=== PATIENT | male | born 1975 | race Caucasian/White ===

== ENCOUNTER 2018-06-29 08:11 | Emergency (ER) | payer BC ==
[~2018-06-29] VITALS: Ht 182.9 cm; Wt 79.8 kg
--- NOTE | 2018-06-29 08:11 | NUR ---
BIB SELF W C/O WORSENING NAUSEA X 2 DAYS,DENIES ABDOMINAL PAIN AT THIS TIME. TO ER BED 9, HOOKED TO MONITOR, CHNAGED TO GOWN, AWAITING MD QUIROS
--- NOTE | 2018-06-29 08:20 | NUR ---
SARINA MILIAN AT BEDSIDE
[2018-06-29] MEDS ORDERED: ONDANSETRON HCL/PF 4 MG/2 ML VIAL IVP ONE (08:30)
[2018-06-29] MEDS ORDERED: IV NS 0.9% 1,000 ML BAG IV ONE (08:30)
[2018-06-29] MEDS ORDERED: ONDANSETRON HCL/PF 4 MG/2 ML VIAL ONE (08:34)
[2018-06-29 08:42] LABS: BASOPHILS # (AUTO) 0.1 /CMM (0.0-0.2); BASOPHILS % (AUTO) 0.5 % (0.0-2.0); EOSINOPHILS % (AUTO) 0.7 % (0.0-6.0); HEMATOCRIT 45 % (39-51); HEMOGLOBIN 15.3 g/dL (13.5-17.5); LYMPHOCYTES # (AUTO) 1.2 /CMM (0.8-4.8); LYMPHOCYTES % (AUTO) 12.7 % (20.0-44.0); MEAN CORPUSCULAR HGB CONC 34 g/dl (31.0-36.0); MEAN CORPUSCULAR VOLUME 88 fL (80-96); MONOCYTES # (AUTO) 0.7 /CMM (0.1-1.30); MONOCYTES % (AUTO) 6.9 % (2.0-12.0); NEUTROPHILS # (AUTO) 7.6 /CMM (1.8-8.9); NEUTROPHILS % (AUTO) 79.2 % (43.0-81.0); PLATELET COUNT (AUTO) 276 /CMM (150-450); RED BLOOD CELL COUNT(AUTO) 5.13 MIL/uL (4.5-6.0); WHITE BLOOD COUNT (AUTO) 9.5 K/uL (4.3-11.0)
[2018-06-29 09:03] LABS: CALCIUM, SERUM 9.3 mg/dL (8.5-10.1); POTASSIUM 3.1 mmol/L (3.5-5.1)
[2018-06-29] MEDS ORDERED: LORAZEPAM INJ 2 MG/ML VIAL ONE ×2 (09:08→09:40)
[2018-06-29] MEDS ORDERED: METOCLOPRAMIDE HCL 10 MG/2 ML VIAL ONE (09:15)
[2018-06-29] MEDS ORDERED: METOCLOPRAMIDE HCL 10 MG/2 ML VIAL IV ONE (09:30)
[2018-06-29] MEDS ORDERED: LORAZEPAM INJ 2 MG/ML VIAL IV ONE ×2 (09:30→10:00)
[2018-06-29] MEDS ORDERED: POTASSIUM CHLORIDE 10 MEQ TABLET.SA ONE (09:40)
[2018-06-29] MEDS ORDERED: POTASSIUM CHLORIDE 10 MEQ TABLET.SA PO ONE (10:00)
--- NOTE | 2018-06-29 10:00 | NUR ---
IV removed. Catheter intact and site benign. Pressure and 4x4 applied to site. No bleeding noted.Patient discharged to home in stable condition. Written and verbal after care instructions given. Patient verbalizes understanding of instruction.
[2018-06-29 10:09] VITALS: BP 142/90
== END 2018-06-29 10:10 | disposition home or self-care (01) ==
LOC: ER 08:13
DX: F12.10 Cannabis abuse, uncomplicated (principal); F41.9 Anxiety disorder, unspecified; E86.0 Dehydration; R11.2 Nausea with vomiting, unspecified
CPT/HCPCS: 36415; 80048-TC; 85025-TC; J2060; J2405; J2765; J7030

== ENCOUNTER 2023-07-09 22:36 | Inpatient (IN) | payer BC, MEDICAID ==
[~2023-07-09] VITALS: Ht 182.9 cm; Wt 90.7 kg
[2023-07-09] MEDS ORDERED: HYDROCODONE/APAP 5/325MG TABLET ONE (23:16)
[2023-07-09] MEDS: HYDROCODONE/APAP 5/325MG TABLET PO ONE (23:19)
[2023-07-09] MEDS: IV NS 0.9% 1,000 ML BAG IV ONE (23:42)
[2023-07-09] MEDS ORDERED: PROPOFOL 20 ML IV ONE (23:53)
[2023-07-10] MEDS: PROPOFOL 200 MG/20 ML VIAL IV ONE (00:12)
[2023-07-10 00:30] VITALS: O2SAT 97
[2023-07-10 00:39] LABS: BASOPHILS # (AUTO) 0.1 K/uL (0.0-0.2); BASOPHILS % (AUTO) 0.8 % (0.0-2.0); EOSINOPHILS # (AUTO) 0.1 K/uL (0.0-0.7); EOSINOPHILS % (AUTO) 0.9 % (0.0-6.0); HEMATOCRIT 41 % (39-51); HEMOGLOBIN 13.9 g/dL (13.5-17.5); LYMPHOCYTES # (AUTO) 1.1 K/uL (0.8-4.8); LYMPHOCYTES % (AUTO) 10.7 % (20.0-44.0); MEAN CORPUSCULAR HEMOGLOBIN 30 PG (26.0-33.0); MEAN CORPUSCULAR HGB CONC 34 g/dl (31.0-36.0); MEAN CORPUSCULAR VOLUME 88 fL (80-96); MONOCYTES # (AUTO) 0.5 K/uL (0.1-1.30); MONOCYTES % (AUTO) 4.8 % (2.0-12.0); NEUTROPHILS # (AUTO) 8.6 K/uL (1.8-8.9); NEUTROPHILS % (AUTO) 82.8 % (43.0-81.0); PLATELET COUNT (AUTO) 306 K/uL (150-450); RED BLOOD CELL COUNT(AUTO) 4.59 MIL/uL (4.5-6.0); RED CELL DISTRIBUTION WIDTH 13.4 % (11.5-15.0); WHITE BLOOD COUNT (AUTO) 10.4 K/uL (4.3-11.0)
[2023-07-10 00:46] LABS: CALCIUM, SERUM 8.6 mg/dL (8.5-10.1); CREATININE 0.8 mg/dL (0.6-1.3); POTASSIUM 3.3 mmol/L (3.5-5.1)
[2023-07-10] MEDS ORDERED: MORPHINE SULFATE INJ 4 MG/ML DISP.SYRIN ONE ×2 (00:47→01:10)
[2023-07-10 00:52] LABS: INR 1.07 (0.91-1.10); PARTIAL THROMBOPLASTIN TIME 27.9 SEC (24.3-34.3); PROTHROMBIN TIME 11.3 SECS (9.2-11.1)
[2023-07-10] MEDS: MORPHINE SULFATE INJ 2 MG/ML DISP.SYRIN IV ONE ×2 (00:52→01:55)
[2023-07-10] MEDS: ONDANSETRON HCL/PF 4 MG/2 ML VIAL IV ONE (01:00)
[2023-07-10] MEDS ORDERED: ONDANSETRON HCL/PF 4 MG/2 ML VIAL ONE (01:00)
[2023-07-10 02:25] VITALS: BP 154/96; TEMP 98.1; O2SAT 95
[2023-07-10] MEDS ORDERED: ACETAMINOPHEN 325 MG TABLET PO PRN (04:30)
[2023-07-10] MEDS: POTASSIUM CHLORIDE 20 MEQ TAB.PRT.SR PO ONE (05:00)
[2023-07-10] MEDS: MORPHINE SULFATE INJ 2 MG/ML DISP.SYRIN IV PRN (05:01)
[2023-07-10 07:00] VITALS: BP 163/115; TEMP 98.9; O2SAT 95
[2023-07-10] MEDS: HYDROCODONE/APAP 5/325MG TABLET PO PRN (07:53)
[2023-07-10] MEDS: MORPHINE SULFATE INJ 4 MG/ML DISP.SYRIN IV PRN (08:41)
[2023-07-10] MEDS: AMLODIPINE BESYLATE 5 MG TABLET PO SCH (09:34)
[2023-07-10] MEDS: hydrALAZINE HCL IV 20 MG VIAL IV PRN (09:35)
[2023-07-10] MEDS: oxyCODONE/APAP (5/325 MG) 1 UDTAB TABLET PO PRN (10:16)
[2023-07-10 16:00] VITALS: BP 127/86; TEMP 98.6; O2SAT 98
[2023-07-10] MEDS: ONDANSETRON HCL/PF 4 MG/2 ML VIAL IV PRN (17:00)
[2023-07-10] MEDS ORDERED: LIDOCAINE 1% INJ 50 ML MDV IJ ONE (17:02)
[2023-07-10] MEDS ORDERED: BUPIVACAINE 0.5 % PF 150 MG/30 ML VIAL ONE (17:02)
[2023-07-10] MEDS ORDERED: FENTANYL PF 100MCG/2ML AMPUL ONE (19:13)
[2023-07-10 20:00] VITALS: BP 139/93; TEMP 98.2; O2SAT 96
[2023-07-11 06:37] LABS: BASOPHILS # (AUTO) 0.1 K/uL (0.0-0.2); BASOPHILS % (AUTO) 0.5 % (0.0-2.0); EOSINOPHILS # (AUTO) 0.2 K/uL (0.0-0.7); EOSINOPHILS % (AUTO) 1.8 % (0.0-6.0); HEMATOCRIT 40 % (39-51); HEMOGLOBIN 13.6 g/dL (13.5-17.5); LYMPHOCYTES # (AUTO) 1.7 K/uL (0.8-4.8); LYMPHOCYTES % (AUTO) 16.9 % (20.0-44.0); MEAN CORPUSCULAR HEMOGLOBIN 30 PG (26.0-33.0); MEAN CORPUSCULAR HGB CONC 34 g/dl (31.0-36.0); MEAN CORPUSCULAR VOLUME 88 fL (80-96); MONOCYTES # (AUTO) 0.8 K/uL (0.1-1.30); MONOCYTES % (AUTO) 8.7 % (2.0-12.0); NEUTROPHILS # (AUTO) 7.1 K/uL (1.8-8.9); NEUTROPHILS % (AUTO) 72.1 % (43.0-81.0); PLATELET COUNT (AUTO) 278 K/uL (150-450); RED BLOOD CELL COUNT(AUTO) 4.57 MIL/uL (4.5-6.0); RED CELL DISTRIBUTION WIDTH 12.9 % (11.5-15.0); WHITE BLOOD COUNT (AUTO) 9.8 K/uL (4.3-11.0)
[2023-07-11 07:00] VITALS: BP 132/81; TEMP 97.4; O2SAT 95
[2023-07-11 07:08] LABS: CALCIUM, SERUM 8.9 mg/dL (8.5-10.1); CREATININE 0.8 mg/dL (0.6-1.3); MAGNESIUM 1.9 mg/dL (1.8-2.4); PHOSPHORUS 3.5 mg/dL (2.5-4.9); POTASSIUM 2.9 mmol/L (3.5-5.1)
[2023-07-11] MEDS: POTASSIUM CHLORIDE 20 MEQ TAB.PRT.SR PO SCH (08:58)
[2023-07-11 08:59] VITALS: BP 132/81
[2023-07-11] MEDS ORDERED: OXYC-117 PO (09:32)
[2023-07-11] MEDS ORDERED: AMLO-212 PO (09:32)
[2023-07-12] MEDS ORDERED: OXYC-128 PO (08:37)
== END 2023-07-11 11:30 | disposition home or self-care (01) | DRG 342 ==
LOC: ER 22:40 → MED 07-10 02:02
PROVIDERS: ADMIT Internal Medicine; ATTEND Internal Medicine
PROC: 0PSCXZZ Reposition Right Humeral Head, External Approach (ICD-10-PCS; principal; 2023-07-10)
PROC: 0RJ Upper Joints, Inspection (ICD-10-PCS; 2023-07-10)
DX: S42.251A Displaced fracture of greater tuberosity of right humerus, initial encounter for closed fracture (principal); E87.6 Hypokalemia; I10 Essential (primary) hypertension; V00.841A Fall from standing electric scooter, initial encounter; Y93.55 Activity, bike riding; Y92.89 Other specified places as the place of occurrence of the external cause
CPT/HCPCS: 36415; 71045-TC; 73030-TC; 73200-TC; 80048-TC; 83735-TC; 84100-TC; 85025-TC; 85730-TC; A4565; G0378; G0500; J0360; J2270; J2405; J2704; J3010; J3490; J7030